=== PATIENT | male | born 1995 | race Two or more races ===

== ENCOUNTER 2017-08-25 09:05 | Emergency (ER) | payer OTHER ==
[2017-08-25 11:03] VITALS: BP 133/67
--- NOTE | 2017-08-25 14:21 | ED ---
Laceration/Wound HPI - HPI Summary HPI Summary: Patient presents to the ED with a laceration to the distal tip of the left middle finger. He sustained the injury approximate 2 hours ago from a blade. Tetanus within 6 years. Bleeding is controlled. Denies numbness, tingling, temperature changes. Denies any other injuries. Denies blood thinners, and is otherwise healthy. Takes no medications. Laceration is 1 cm in length, irregular, and superficial. - History of Current Complaint Stated Complaint: FINGER LAC Time Seen by Provider: 08/25/17 09:50 Hx Obtained From: Patient Mechanism of Injury: Sharp/Blunt Trauma Onset/Duration: Sudden Onset Aggravating: Movement Alleviating: Compression Timing: Constant Onset Severity: Mild Current Severity: Mild Pain Intensity: 0 Pain Scale Used: 0-10 Numeric Associated Signs & Symptoms: Negative Related Hx: Dominant Hand (Right) - Additional Pertinent History Recent Stress Test: No - Allergy/Home Medications Allergies/Adverse Reactions: Allergies Allergy/AdvReac Type Severity Reaction Status Date / Time No Known Allergies Allergy Verified 08/25/17 09:27 PMH/Surg Hx/FS Hx/Imm Hx Previously Healthy: Yes - Immunization History Hx Pertussis Vaccination: No Immunizations Up to Date: Unable to Obtain/Confirm Infectious Disease History: No Infectious Disease History: Denies: Traveled Outside the [place] in Last 30 Days - Social History Occupation: Student Lives: Dormitory/Roommates Alcohol Use: Rare Hx Substance Use: No Substance Use Type: Reports: None Hx Tobacco Use: No Smoking Status (MU): Unknown if Ever Smoked Review of Systems Constitutional: Negative Negative: Fever, Chills, Fatigue Eyes: Negative Cardiovascular: Negative Respiratory: Negative Positive: no symptoms reported, see HPI Musculoskeletal: Negative Positive: Other Neurological: Negative All Other Systems Reviewed And Are Negative: Yes Physical Exam Triage Information Reviewed: Yes Vital Signs On Initial Exam: Initial Vitals Temp Pulse Resp BP Pulse Ox 99.1 F 53 15 130/80 99 08/25/17 09:27 08/25/17 09:27 08/25/17 09:27 08/25/17 09:27 08/25/17 09:27 Vital Signs Reviewed: Yes Appearance: Positive: Well-Appearing, Well-Nourished Skin: Positive: Warm, Skin Color Reflects Adequate Perfusion, Other - 1cm laceration Head/Face: Positive: Normal Head/Face Inspection Eyes: Positive: EOMI, BRENDA, Conjunctiva Clear Neck: Positive: Supple, No Lymphadenopathy Respiratory/Lung Sounds: Positive: Clear to Auscultation, Breath Sounds Present Cardiovascular: Positive: RRR, Pulses are Symmetrical in both Upper and Lower Extremities Neurological: Positive: Sensory/Motor Intact, Alert, Oriented to Person Place, Time, Speech Normal Psychiatric: Positive: Normal, Affect/Mood Appropriate AVPU Assessment: Alert Diagnostics - Vital Signs Vital Signs Temp Pulse Resp BP Pulse Ox 08/25/17 11:00 97.8 F 54 16 133/67 99 08/25/17 09:27 99.1 F 53 15 130/80 99 - Laboratory Lab Statement: Any lab studies that have been ordered have been reviewed, and results considered in the medical decision making process. Laceration Repair Course/Dx - Course Course Of Treatment: During the course of treatment, the patient is evaluated for a laceration measuring 1 cm which is irregular. The wound is superficial and bleeding is controlled. Wound was cleansed thoroughly. I have advised adhesive as opposed to sutures. Patient agrees and is okay with this plan. 2 layers of adhesive glue applied and tube gauze placed. He is given care instructions and is okay for discharge at this time. - Clinical Impression Provider Diagnoses: Laceration Discharge - Discharge Plan Condition: Stable Disposition: HOME Patient Education Materials: Skin Adhesive Care (ED) Forms: *School Release Referrals: [facility] [Primary Care Provider] - Additional Instructions: Keep bandage applied for 3 days Keep the area clean The skin adhesive will slowly slough off
== END 2017-08-25 11:00 | disposition home or self-care (01) ==
LOC: ED 09:05
DX: S61.213A Laceration without foreign body of left middle finger without damage to nail, initial encounter (principal); W26.8XXA Contact with other sharp object(s), not elsewhere classified, initial encounter; Y92.9 Unspecified place or not applicable
CPT/HCPCS: 12001; 99281